=== PATIENT | female | born 1995 | race Caucasian/White ===

== ENCOUNTER 2022-07-09 20:14 | Inpatient (IN) ==
[~2022-07-09 20:14] MED LIST: *HR* Nalbuphine 10 MG/ML AMPUL IV PRN; Famotidine 20 MG/2 ML VIAL IVP PRN; Metoclopramide 10 MG/2 ML VIAL IVP PRN; Naloxone 0.4 MG/ML INJ IVP PRN; Ondansetron 4 MG/2 ML VIAL IVP PRN
[2022-07-09] MEDS ORDERED: Ringers Solution, Lactated 1,000 ML IVC SCH (20:15)
[2022-07-09 20:45] LABS: Basophils # 0.1 K/mcL (0.0-0.2); Basophils % 0.4 %; Eosinophils # 0.2 K/mcL (0.0-0.6); Eosinophils % 1.2 %; Hematocrit 40.3 % (35.3-44.9); Hemoglobin 13.5 g/dL (11.5-15.4); Immature Granulocytes % 0.5 % (0-4); Lymphocytes # 3.7 K/mcL (0.6-4.6); Lymphocytes % 21.8 %; Mean Corpuscular HGB Conc 33.5 g/dL (31.6-35.5); Mean Corpuscular Hemoglobin 27.5 pg (28.0-33.3); Mean Corpuscular Volume 82.1 fL (83.0-100.0); Mean Platelet Volume 10.1 fL (9.4-12.4); Monocytes # 1.2 K/mcL (0.0-1.3); Monocytes % 6.7 %; Neutrophils # 11.8 K/mcL (1.6-8.9); Platelet Count 323 K/mcL (140-400); Red Blood Count 4.91 M/mcL (3.82-4.97); Red Cell Distribution Width 13.4 % (11.5-14.5); Segmented Neutrophils % 69.4 %
[2022-07-09 20:53] LABS: Amphetamine Screen,Urine Negative ng/mL (Cutoff=1000); Barbiturate Screen,Urine Negative ng/mL (Cutoff=200); Benzodiazepines Screen,Urine Negative ng/mL (Cutoff=200); Cannabinoid Screen,Urine Negative ng/mL (Cutoff = 50); Cocaine Screen,Urine Negative ng/mL (Cutoff= 300); Opiate Screen,Urine Negative ng/mL (Cutoff=300); Phencyclidine Screen,Urine Negative ng/mL (Cutoff=25)
[2022-07-09] MEDS ORDERED: EPHEDrine sulfate 50 MG/10 ML VIAL IVP PRN (22:29)
[2022-07-09] MEDS ORDERED: Epidural Premix (fent/bupiv) 110 ML EP SCH (22:30)
[2022-07-09] MEDS ORDERED: *HR* Oxytocin 10 UNIT/ML VIAL ONE (23:10)
[2022-07-10] MEDS ORDERED: Ondansetron ODT 4 MG TAB.RAPDIS SL PRN (03:58)
[2022-07-10] MEDS ORDERED: OXYTOCIN/RINGERS LACTATE 10 UNIT/166.6 ML BAG IVC ONE (03:58)
[2022-07-10] MEDS ORDERED: Lanolin 7 G OINT...G. TP PRN (03:58)
[2022-07-10] MEDS ORDERED: Benzocaine/Menthol 56 GM AEROSOL SPRAY TP PRN (03:58)
[2022-07-10] MEDS ORDERED: Oxytocin 30 UNIT/503 ML BAG IVC SCH (03:58)
[2022-07-10] MEDS: Ibuprofen 600 MG TABLET PO SCH ×3 (05:57→22:31)
[2022-07-10] MEDS: Acetaminophen 325 MG TABLET PO SCH ×3 (05:58→22:32)
[2022-07-10] MEDS: Prenatal Vit/FA 1 EACH TABLET PO SCH (07:48)
[2022-07-11 08:38] VITALS: BP 129/80; PULSE 73; TEMP 98; O2SAT 99
[2022-07-11] MEDS: Prenatal Vit/FA 1 EACH TABLET PO SCH (08:38)
[2022-07-11] MEDS: Acetaminophen 325 MG TABLET PO SCH (10:20)
[2022-07-11] MEDS: Ibuprofen 600 MG TABLET PO SCH (10:21)
== END 2022-07-11 13:56 | disposition home or self-care (01) | DRG 807 ==
LOC: 1NENULAB → 1NENUOBS 07-10 03:54
PROVIDERS: ADMIT Registered Nurse; ATTEND Registered Nurse